=== PATIENT | male | born 1970 | race American Indian/Alaskan Native ===

== ENCOUNTER 2017-03-13 17:19 | Inpatient (IN) | payer MEDICAID, OTHER ==
[2017-03-13] MEDS ORDERED: Iopamidol 755 MG/ML 500 ML Multipack Bottle IVPUSH STA (18:14)
--- NOTE | 2017-03-13 18:24 | EDM.PDOC ---
ED HPI GENERAL MEDICAL PROBLEM - General Chief Complaint: Abdominal Pain Stated Complaint: PT HAS STOMACH PAINS Time Seen by Provider: 03/13/17 18:05 Source of Information: Reports: Patient, Old Records History Limitations: Reports: No Limitations - History of Present Illness INITIAL COMMENTS - FREE TEXT/NARRATIVE: HISTORY AND PHYSICAL: History of present illness: [Pt comes to the ER, referred by Dr. Kimble, his PCP in [place]. Patient developed abdominal pain and bloating last evening which has continued into today. He ate supper at 1900 hours last night but then started with nausea abdominal pain and bloating. He had 5 episodes of vomiting during the night she continued into today. He is vomiting up water. His passing very small amount of gas. He had 1 episode of vomiting prior to arrival in this ER. He's not had any chills but has admitted to episodes of feeling hot with sweating. No blurred vision or double vision. No sore throat chest pain difficulty breathing change in bowel or bladder. No pain to his extremities no weakness in the rashes. He denies any history of abdominal pain or surgeries. Past medical history significant for hypertension and hematuria. No BM or change in his symptoms since evaluation by PCP. ] Review of systems: As per history of present illness and below otherwise all systems reviewed and negative. Past medical history: As per history of present illness and as reviewed below otherwise noncontributory. Surgical history: As per history of present illness and as reviewed below otherwise noncontributory. Social history: No reported history of drug or alcohol abuse. Family history: As per history of present illness and as reviewed below otherwise noncontributory. Physical exam: HEENT: Atraumatic, normocephalic. Oral mucous membranes moist, throat clear, neck supple, nontender. . Lungs: Clear to auscultation, breath sounds equal bilaterally, chest nontender. Heart: S1S2, regular, negative for clicks, rubs, or JVD. Abdomen: Bowel sounds are hypoactive. Abdomen is somewhat firm and distended. No rebound guarding or masses. Pelvis: Stable nontender. Genitourinary: Deferred. Rectal: Deferred. Extremities: No swelling or cyanosis to the lower legs. Neurovascular unremarkable. Neuro: Awake, alert, oriented. Motor and sensory unremarkable throughout. Exam nonfocal. Diagnostics: [CT abdomen and pelvis w/ contrast, CBC, lactic acid, blood cultures x 2] Therapeutics: [none.] Impression: [abdominal pain] Plan: [Dr. Kimble reports that air-fluid levels are appreciated on abdominal x-ray which is performed in clinic morning. CBC shows a white count of 13.7. hemoglobin 15.5. RBCs 5.35 platelets 228.0. Sodium 143. potassium 4.2. liver enzymes are within normal limits. BUN 10. creatinine 1.03. GFR greater than 60. Lactic acid is normal at 1.9. CT shows distention of small bowel in the L mid abdomen w/ mesenteric edema and minimal free fluid. Differential includes enteritis and partial or early small bowel obstruction. Discussed patient's CT findings with Dr. Ryan who agrees to accept patient in patient. This is discussed with patient who is in agreement with inpatient hospitalization. ] Definitive disposition and diagnosis as appropriate pending reevaluation and review of above. Abdominal Pain Score (Numeric/FACES): 5 - Related Data Allergies Allergy/AdvReac Type Severity Reaction Status Date / Time COCA COLA Allergy Hives Uncoded 07/30/15 13:07 Home Meds: Home Meds Lisinopril [Prinivil] 10 mg PO DAILY 07/11/15 [History] Social & Family History - Tobacco Use Smoking Status *Q: Never Smoker Second Hand Smoke Exposure: No - Caffeine Use Caffeine Use: Reports: None - Recreational Drug Use Recreational Drug Use: No ED ROS GENERAL - Review of Systems Review Of Systems: ROS reveals no pertinent complaints other than HPI. ED EXAM, GI/ABD - Physical Exam Exam: See Below Course - Vital Signs Last Recorded V/S: Last Vital Signs Temp 98.1 F 03/13/17 19:21 Pulse 63 03/13/17 19:21 Resp 16 03/13/17 19:21 BP 151/87 H 03/13/17 19:21 Pulse Ox 98 03/13/17 19:21 - Orders/Labs/Meds Orders: Active Orders 24 hr Category Date Time Status Abdomen Pelvis w Cont [CT] Stat Exams 03/13/17 17:39 Taken CULTURE BLOOD [BC] Stat Lab 03/13/17 19:34 Received CULTURE BLOOD [BC] Stat Lab 03/13/17 19:38 Received Blood Culture x2 Reflex Set [OM.PC] Stat Oth 03/13/17 19:24 Ordered Labs: Laboratory Tests 03/13/17 03/13/17 Range/Units 18:20 18:20 WBC 12.66 H (4.0-11.0) K/uL RBC 5.24 (4.50-5.90) M/uL Hgb 16.0 (13.0-17.0) g/dL Hct 45.6 (38.0-50.0) % MCV 87.0 (80.0-98.0) fL MCH 30.5 (27.0-32.0) pg MCHC 35.1 (31.0-37.0) g/dL RDW Std Deviation 42.7 (28.0-62.0) fl RDW Coeff of [place]ine[place] 14 (11.0-15.0) % Plt Count 216 (150-400) K/uL MPV 9.80 (7.40-12.00) fL Neut % (Auto) 72.3 (48.0-80.0) % Lymph % (Auto) 20.2 (16.0-40.0) % [place] % (Auto) 6.3 (0.0-15.0) % Eos % (Auto) 0.6 (0.0-7.0) % Baso % (Auto) 0.6 (0.0-1.5) % Neut # (Auto) 9.1 H (1.4-5.7) K/uL Lymph # (Auto) 2.6 H (0.6-2.4) K/uL [place] # (Auto) 0.8 (0.0-0.8) K/uL Eos # (Auto) 0.1 (0.0-0.7) K/uL Baso # (Auto) 0.1 (0.0-0.1) K/uL Nucleated RBC % 0.0 /100WBC Nucleated RBCs # 0 K/uL Lactate 1.9 (0.20-2.00) mmol/L Meds: Medications Discontinued Medications Generic Name Dose Route Start Last Admin Trade Name Freq PRN Reason Stop Dose Admin Iopamidol 100 ml 03/13/17 18:14 03/13/17 18:32 Isovue Multipack-370 (76%) IVPUSH 03/13/17 18:15 100 ml ONETIME STA Administration Departure - Departure Time of Disposition: 19:55 Disposition: Admitted As Inpatient 64 Condition: good Clinical Impression: Abdominal pain Qualifiers: Abdominal location: generalized Qualified Code(s): R10.84 - Generalized abdominal pain - Discharge Information Forms: ED Department Discharge - My Orders Last 24 Hours: My Active Orders 03/13/17 17:39 Abdomen Pelvis w Cont [CT] Stat 03/13/17 19:24 Blood Culture x2 Reflex Set [OM.PC] Stat 03/13/17 19:34 CULTURE BLOOD [BC] Stat 03/13/17 19:38 CULTURE BLOOD [BC] Stat - Assessment/Plan Last 24 Hours: My Active Orders 03/13/17 17:39 Abdomen Pelvis w Cont [CT] Stat 03/13/17 19:24 Blood Culture x2 Reflex Set [OM.PC] Stat 03/13/17 19:34 CULTURE BLOOD [BC] Stat 03/13/17 19:38 CULTURE BLOOD [BC] Stat
[2017-03-13] MEDS ORDERED: fentaNYL 100 MCG/2 ML SDV IVPUSH PRN (20:46)
--- NOTE | 2017-03-13 20:46 | PCM.HP ---
H&P History of Present Illness - General Date of Service: 03/13/17 Admit Problem/Dx: Admission Diagnosis/Problem Admission Diagnosis/Problem Abdominal pain - History of Present Illness Initial Comments - Free Text/Narative: He was seen in the ED today with complaint of abdominal pain and recurrent vomiting. He states that he does not have so much pain ; it is more a bloated feeling. no fever no diarrhea no dysuria Abdominal Pain Score (Numeric/FACES): 5 - Related Data Allergies/Adverse Reactions: Allergies Allergy/AdvReac Type Severity Reaction Status Date / Time COCA COLA Allergy Hives Uncoded 07/30/15 13:07 Home Medications: Home Meds Lisinopril [Prinivil] 10 mg PO DAILY 07/11/15 [History] Past Medical History Cardiovascular History: Reports: Hypertension. Denies: Afib, CAD, Cardiomyopathy, Heart Failure Respiratory History: Denies: COPD Gastrointestinal History: Denies: Cirrhosis Genitourinary History: Reports: Other (See Below) Other Genitourinary History: hematuria once, none since Musculoskeletal History: Denies: Muscular Dystrophy, RA, SLE Neurological History: Denies: CVA, MS Psychiatric History: Reports: Anxiety Endocrine/Metabolic History: Denies: Diabetes, Type I, Diabetes, Type II Oncologic (Cancer) History: Reports: None - Past Surgical History Head Surgeries/Procedures: Reports: None Male Surgical History: Reports: None Social & Family History - Family History Cardiac: Reports: [place] Respiratory: Reports: None GI: Reports: None Endocrine/Metabolic: Reports: Diabetes, type II Oncologic: Reports: Colon - Tobacco Use Smoking Status *Q: Never Smoker Second Hand Smoke Exposure: No - Caffeine Use Caffeine Use: Reports: Soda, Tea - Alcohol Use Alcohol Use Comment: he states that he does not drink alcohol - Recreational Drug Use Recreational Drug Use: No H&P Review of Systems - Review of Systems: Review Of Systems: See Below General: Denies: Fever HEENT: Denies: Ear Pain, Sore Throat Pulmonary: Denies: Shortness of Breath, Cough, Sputum, Hemoptysis Cardiovascular: Denies: Chest Pain, Palpitations, Edema, Syncope Gastrointestinal: Reports: Abdominal Pain, Distension, Nausea, Vomiting. Denies : Black Stool, Bloody Stool, Hematochezia Genitourinary: Denies: Dysuria, Frequency, Burning, Hematuria Psychiatric: Denies: Confusion, Hallucinations Exam - Exam Exam: See Below - Vital Signs Vital Signs: Last Vital Signs Temp 98.0 F 03/13/17 20:17 Pulse 67 03/13/17 20:17 Resp 18 03/13/17 20:17 BP 169/81 H 03/13/17 20:17 Pulse Ox 96 03/13/17 20:17 Weight: 122.6 kg - Exam General: Alert, Oriented, Cooperative HEENT: EOMI, Mucosa Moist & [place] Neck: Supple, Trachea Midline Lungs: Clear to Auscultation, Normal Respiratory Effort. No: Crackles, Rales, Rhonchi, Rub, Stridor Cardiovascular: Regular Rate, Regular Rhythm Abdomen: Distention, Tenderness (minimal diffuse tenderness), Hypoactive Bowel Sounds. No: Guarding, Rigidity, Rebound, Tympanic Bowel Sounds (Male) Exam: Deferred Extremities: No: Edema Neurological: Cranial Nerves Intact, Normal Speech Neuro Extensive - Mental Status: Normal Mood/Affect Neuro Extensive - Motor, Sensory, Reflexes: No: Facial palsy (L), Facial Palsy ( R), Hemeplagia (R), Hemeplagia (L) Psychiatric: Alert, Normal Affect - Patient Data Result Diagrams: 03/13/17 18:20 *Q Meaningful Use (ADM) - VTE *Q VTE Criteria *Q: - Stroke *Q Stroke Criteria *Q: - AMI *Q AMI Criteria *Q: - Problem List (1) Abdominal pain SNOMED Code(s): 18664896 ICD Code: R10.9 - UNSPECIFIED ABDOMINAL PAIN Status: Acute Current Visit : Yes Qualifiers: Abdominal location: generalized Qualified Code(s): R10.84 - Generalized abdominal pain Problem List Initiated/Reviewed/Updated: Yes Assessment/Plan Comment:: He may have an ileus. will admit and give bowel rest with IVF; may need NG tube will need chemistries, LFT's , abdominal ultrasound, lipase, close monitoring. Joseph Ryan MD
[2017-03-13] MEDS ORDERED: LORazepam 2 MG/ML MDV IVPUSH PRN (20:51)
[2017-03-13 21:06] LABS: CHLORIDE,CL 102 mmol/L (98-110); SODIUM,NA 140 mmol/L (136-146)
[2017-03-13] MEDS: Sodium Chloride 0.9% 1,000 ML IV SCH (21:16)
[2017-03-13] MEDS: Ondansetron 4 MG/2 ML SDV IVPUSH PRN (21:19)
[2017-03-13] MEDS: Enalaprilat 1.25 MG/ML SDV IVPUSH SCH (21:20)
[2017-03-14] MEDS: Ondansetron 4 MG/2 ML SDV IVPUSH PRN (02:18)
[2017-03-14] MEDS: Enalaprilat 1.25 MG/ML SDV IVPUSH SCH ×4 (03:09→20:22)
[2017-03-14] MEDS: Sodium Chloride 0.9% 1,000 ML IV SCH ×4 (03:55→22:00)
[2017-03-14 05:45] LABS: CHLORIDE,CL 104 mmol/L (98-110); SODIUM,NA 141 mmol/L (136-146)
--- NOTE | 2017-03-14 09:39 | PCM.PN ---
- General Info Date of Service: 03/14/17 Admission Dx/Problem (Free Text): Admission Diagnosis/Problem Admission Diagnosis/Problem Abdominal pain Subjective Update: Patient states that abdominal pain has sightly improved but is still present. Currently it is 2/10 and yesterday at admission it was 4-5/10. He just recently had an episode of vomiting. He states this is the first time he has ever had these symptoms and they began abruptly the day the presented. Functional Status: Reports: pain controlled - Review of Systems General: Denies: Fever, Weakness HEENT: Reports: no symptoms Pulmonary: Reports: no symptoms Cardiovascular: Reports: No Symptoms Gastrointestinal: Reports: Abdominal pain, Nausea, Vomiting. Denies: Constipation, Diarrhea Genitourinary: Reports: no symptoms Musculoskeletal: Reports: no symptoms Skin: Reports: no symptoms Neurological: Reports: No Symptoms - Patient Data Vitals - most recent: Last Vital Signs Temp 37.1 C 03/14/17 08:00 Pulse 97 03/14/17 08:00 Resp 20 03/14/17 08:00 BP 149/74 H 03/14/17 08:24 Pulse Ox 91 L 03/14/17 08:00 Weight - most recent: 122.6 kg I&O - last 24 hours: Intake & Output 03/13/17 03/14/17 03/14/17 22:59 06:59 14:59 Intake Total 990 Output Total 450 Balance 540 Lab Results last 24 hrs: Laboratory Results - last 24 hr 03/14/17 03/14/17 03/14/17 Range/Units 02:22 04:50 04:50 WBC 9.95 (4.0-11.0) K/uL RBC 4.96 (4.50-5.90) M/uL Hgb 14.4 (13.0-17.0) g/dL Hct 43.7 (38.0-50.0) % MCV 88.1 (80.0-98.0) fL MCH 29.0 (27.0-32.0) pg MCHC 33.0 (31.0-37.0) g/dL RDW Std Deviation 44.4 (28.0-62.0) fl RDW Coeff of [place] 14 (11.0-15.0) % Plt Count 223 (150-400) K/uL MPV 10.10 (7.40-12.00) fL Neut % (Auto) 71.4 (48.0-80.0) % Lymph % (Auto) 19.2 (16.0-40.0) % [place] % (Auto) 7.9 (0.0-15.0) % Eos % (Auto) 1.0 (0.0-7.0) % Baso % (Auto) 0.5 (0.0-1.5) % Neut # (Auto) 7.1 H (1.4-5.7) K/uL Lymph # (Auto) 1.9 (0.6-2.4) K/uL [place] # (Auto) 0.8 (0.0-0.8) K/uL Eos # (Auto) 0.1 (0.0-0.7) K/uL Baso # (Auto) 0.1 (0.0-0.1) K/uL Nucleated RBC % 0.0 /100WBC Nucleated RBCs # 0 K/uL Sodium 141 (136-146) mmol/L Potassium 4.3 (3.5-5.1) mmol/L Chloride 104 (98-110) mmol/L Carbon Dioxide 26 (21-31) mmol/L BUN 11 (6.0-23.0) mg/dL Creatinine 1.0 (0.6-1.5) mg/dL Est Cr Clr Drug Dosing 102.09 mL/min Estimated GFR (MDRD) > 60.0 ml/min Glucose 124 H (60-110) mg/dL Hemoglobin A1c (0.0-6.0) % Calcium 9.2 (8.8-10.8) mg/dL Magnesium 1.7 (1.5-2.3) mEq/L Total Bilirubin 1.2 (0.1-1.5) mg/dL AST 15 (5-40) IU/L ALT 15 (8-54) IU/L Alkaline Phosphatase 97 (40-150) Total Protein 6.7 (6.0-8.0) g/dL Albumin 4.1 (3.5-5.0) g/dL Globulin 2.6 (2.0-3.5) g/dL Albumin/Globulin Ratio 1.6 (1.3-2.8) Urine Color YELLOW Urine Appearance CLEAR Urine pH 7.0 (5.0-8.0) Ur Specific [place] <= 1.005 (1.001-1.035) Urine Protein NEGATIVE (NEGATIVE) mg/dL Urine Glucose (UA) NEGATIVE (NEGATIVE) mg/dL Urine Ketones NEGATIVE (NEGATIVE) mg/dL Urine Occult Blood MODERATE (NEGATIVE) Urine Nitrite NEGATIVE (NEGATIVE) Urine Bilirubin NEGATIVE (NEGATIVE) Urine Urobilinogen 1.0 (<2.0) EU/dL Ur Leukocyte Esterase NEGATIVE (NEGATIVE) Urine RBC 6-10 (0-2/HPF) Urine WBC 0-1 (0-5/HPF) Ur Epithelial Cells FEW (NONE-FEW) Urine Bacteria RARE (NEGATIVE) Urine Mucus LIGHT (NONE-MOD) 03/14/17 Range/Units 04:50 WBC (4.0-11.0) K/uL RBC (4.50-5.90) M/uL Hgb (13.0-17.0) g/dL Hct (38.0-50.0) % MCV (80.0-98.0) fL MCH (27.0-32.0) pg MCHC (31.0-37.0) g/dL RDW Std Deviation (28.0-62.0) fl RDW Coeff of [place] (11.0-15.0) % Plt Count (150-400) K/uL MPV (7.40-12.00) fL Neut % (Auto) (48.0-80.0) % Lymph % (Auto) (16.0-40.0) % [place] % (Auto) (0.0-15.0) % Eos % (Auto) (0.0-7.0) % Baso % (Auto) (0.0-1.5) % Neut # (Auto) (1.4-5.7) K/uL Lymph # (Auto) (0.6-2.4) K/uL [place] # (Auto) (0.0-0.8) K/uL Eos # (Auto) (0.0-0.7) K/uL Baso # (Auto) (0.0-0.1) K/uL Nucleated RBC % /100WBC Nucleated RBCs # K/uL Sodium (136-146) mmol/L Potassium (3.5-5.1) mmol/L Chloride (98-110) mmol/L Carbon Dioxide (21-31) mmol/L BUN (6.0-23.0) mg/dL Creatinine (0.6-1.5) mg/dL Est Cr Clr Drug Dosing mL/min Estimated GFR (MDRD) ml/min Glucose (60-110) mg/dL Hemoglobin A1c 6.2 H (0.0-6.0) % Calcium (8.8-10.8) mg/dL Magnesium (1.5-2.3) mEq/L Total Bilirubin (0.1-1.5) mg/dL AST (5-40) IU/L ALT (8-54) IU/L Alkaline Phosphatase (40-150) Total Protein (6.0-8.0) g/dL Albumin (3.5-5.0) g/dL Globulin (2.0-3.5) g/dL Albumin/Globulin Ratio (1.3-2.8) Urine Color Urine Appearance Urine pH (5.0-8.0) Ur Specific [place] (1.001-1.035) Urine Protein (NEGATIVE) mg/dL Urine Glucose (UA) (NEGATIVE) mg/dL Urine Ketones (NEGATIVE) mg/dL Urine Occult Blood (NEGATIVE) Urine Nitrite (NEGATIVE) Urine Bilirubin (NEGATIVE) Urine Urobilinogen (<2.0) EU/dL Ur Leukocyte Esterase (NEGATIVE) Urine RBC (0-2/HPF) Urine WBC (0-5/HPF) Ur Epithelial Cells (NONE-FEW) Urine Bacteria (NEGATIVE) Urine Mucus (NONE-MOD) Med Orders - Current: Current Medications Enalaprilat (Vasotec Iv) 1.25 mg IVPUSH Q6H [facility] Last Admin: 03/14/17 08:24 Dose: 1.25 mg Sodium Chloride (Normal Saline) 1,000 mls @ 150 mls/hr IV ASDIRECTED [facility] Last Admin: 03/14/17 03:55 Dose: 150 mls/hr Lorazepam (Ativan) 1 mg IVPUSH Q6H PRN PRN Reason: Anxiety Ondansetron HCl (Zofran) 4 mg IVPUSH Q4H PRN PRN Reason: Nausea Last Admin: 03/14/17 02:18 Dose: 4 mg Discontinued Medications Fentanyl (Sublimaze) 50 mcg IVPUSH Q1H PRN PRN Reason: Pain Stop: 03/13/17 21:47 Iopamidol (Isovue Multipack-370 (76%)) 100 ml IVPUSH ONETIME STA Stop: 03/13/17 18:15 Last Admin: 03/13/17 18:32 Dose: 100 ml - Exam General: alert, oriented, cooperative, no acute distress HEENT: Pupils equal, Pupils reactive Neck: supple Lungs: Clear to auscultation, Normal respiratory effort Cardiovascular: Regular Rate, Regular Rhythm Abdomen: bowel sounds present, tenderness, distension. No: rigidity, rebound, guarding Skin: moist Neurological: no new focal deficit Psy/Mental Status: alert, normal affect, normal mood - Problem List Review Problem List Initiated/Reviewed/Updated: Yes - Plan Plan:: 1. Nausea, Vomiting and Abdominal pain -likely secondary to SBO from Ileus -last BM was 2 days ago -CT shows distended small bowel loops in LLQ -Leukocytosis resolved, wbc count 9.95 -LFT, Amylase, Lipase WNL -continue bowel rest & IVF; may need NG tube -abdominal US today 2. Fatty Liver -seen on CT Abdomen -hepatic panel wnl -denies alcohol use -abdominal US today 3. Pre-Diabetes, HbA1C 6.2% -no previous history of DM -monitor glucose as usual 4. as per orders
--- NOTE | 2017-03-14 10:25 | CT ---
EXAM DATE: 03/13/17 PATIENT'S AGE: 46 Patient: MEDINA REYES Facility: [place], [place] Site . Site : 1970 Study: CT Abdomen/Pelvis [id number] 6:34:19 PM Ordering Physician: Doctor Fair Final Report: INDICATION: Abdominal pain. CT ABDOMEN AND PELVIS WITH CONTRAST TECHNIQUE: Multidetector CT imaging was performed through the abdomen and pelvis following intravenous contrast administration using 100 mL Isovue 370. Coronal and sagittal reconstructions were generated. COMPARISON: None. FINDINGS: Lower chest: Lung bases are clear. Liver: Diffuse fatty infiltration of the liver. Gallbladder and bile ducts: No gallbladder wall thickening or calcified gallstones. No biliary dilation identified. Pancreas: Unremarkable. Spleen: Normal. Adrenals: No nodules or masses. Kidneys, ureters, and urinary bladder: A few very small right renal cortical cysts. No suspicious renal masses or hydronephrosis. Nondistended urinary bladder. No bladder mass or definite wall thickening. Gastrointestinal tract: Moderate abnormal distention of small bowel loops in the left mid abdomen with minimal adjacent mesenteric edema. Discrete caliber transition not clearly visualized. The appendix and colon are normal. Vascular structures: Normal for age. Peritoneum: Small amount of free fluid in the lower pelvis. Lymph nodes: No pathologically enlarged nodes identified. Reproductive organs: No pelvic masses. Bones: Normal for age. IMPRESSION: 1. Moderate abnormal distention of small bowel in the left mid abdomen with minimal adjacent mesenteric edema and minimal free fluid. Differential considerations include enteritis and partial or early small bowel obstruction. 2. Fatty infiltration of liver. LIDA PIERRE MD [employer] Dictated by Uri Pierre MD @ 03/13/2017 7:08:33 PM Dictated by: Uri Pierre MD @ 03/13/2017 19:10:46 (Electronic Signature) Report Signed by Proxy. [facility]PITALJayy
--- NOTE | 2017-03-14 10:37 | US ---
EXAM DATE: 03/13/17 PATIENT'S AGE: 46 Patient: MEDINA REYES Facility: [place], [place] Site . Site : 1970 Study: US Abdomen [id number] 10:27:48 PM Ordering Physician: Connor Ruiz Final Report: INDICATION: pain TECHNIQUE: Ultrasound abdomen limited. Sonographic images of the right upper quadrant were obtained using kelley-scale and color Doppler images. COMPARISON: None FINDINGS: Liver: Normal in size with diffuse increased echotexture. No masses. No intrahepatic biliary dilatation. Gallbladder: No stones or sludge. Normal wall thickness. No pericholecystic fluid. Common bile duct: 3 mm. Pancreas: Obscured. Right kidney: 10.1 cm. Normal echotexture and cortex. No masses, stones, or hydronephrosis. IMPRESSION: 1. No acute abnormality. 2. Diffuse fatty infiltration of the liver. Dictated by Duane Jauregui MD @ 03/13/2017 10:37:01 PM Dictated by: Duane Jauregui MD @ 03/13/2017 22:37:38 (Electronic Signature) Report Signed by Proxy. [facility]ITAL[facility]
[2017-03-14] MEDS: Insulin Aspart 100 Units/ML 3 ML Pen SUBCUT SCH ×2 (11:58→17:29)
[2017-03-14] MEDS: Acetaminophen 325 MG Tab PO PRN (18:49)
[2017-03-15] MEDS: Enalaprilat 1.25 MG/ML SDV IVPUSH SCH ×3 (03:52→15:12)
[2017-03-15] MEDS: Acetaminophen 325 MG Tab PO PRN (03:52)
[2017-03-15] MEDS: Sodium Chloride 0.9% 1,000 ML IV SCH ×2 (04:41→11:30)
[2017-03-15 04:46] LABS: CHLORIDE,CL 106 mmol/L (98-110); SODIUM,NA 140 mmol/L (136-146)
[2017-03-15 15:12] VITALS: BP 126/91
--- NOTE | 2017-03-20 16:56 | PCM.DCSUM1 ---
<Baluch,Oscar - Last Filed: 03/20/17 17:54> Discharge Summary - Hospital Course Free Text/Narrative:: 46 yo male admitted to the hospital on 03/13/17 for small bowel obstruction. He was transferred from from his PCP's clinic due to nausea, vomiting, mild abdominal pain and lack of bm for [address] Abdomen was done in ED which revealed distended small bowel loops. He was put on NPO and given IVF for hydration. Patient was relatively stable and abdominal pain was minimal at most. On second day he reported improved abdominal pain, with some gas passed but no bowel movements. On day 3 his abdominal pain resolved and he had 3 bm's. He was monitored to make sure he was tolerating PO Intake which he did. Patient was discharged home later that day. He will be following up at [facility] with Dr. Barry. It should also be noted that patient was found to have diffuse fatty infiltration of his liver on the CT that was done on day of his admission. Abdominal US RUQ was then done which also showed fatty infiltration. Patient denies alcohol use. His hepatic panel was completely normal. Although this is likely due to obesity patient should have biopsy of liver since there is not enough evidence for us to confirm that his fatty liver is indeed from obesity. Recommended to patient that he bring this up with his pcp and try to schedule Biopsy. I also told the patient that he may see me in clinic and i will arrange for him to have the biopsy done. Discharge Diagnosis: 1. SBO, secondary to ileus, resolved 2. Fatty Liver -seen on CT Abdomen and US abdomen -hepatic panel wnl -denies alcohol use -likely due to obesity but patient should still have Liver Biopsy to rule out other potential serious causes of diffuse fatty infiltration of the liver 3. Pre-Diabetes, HbA1C 6.2% -no previous history of DM - Discharge Data Discharge Date: 03/15/17 Discharge Disposition: Home, Self-Care 01 Condition: Good - Discharge Diagnosis/Problem(s) (1) Abdominal pain SNOMED Code(s): 33090549 ICD Code: R10.9 - UNSPECIFIED ABDOMINAL PAIN Status: Acute Qualifiers: Abdominal location: generalized Qualified Code(s): R10.84 - Generalized abdominal pain - Patient Instructions Diet: Clear Liquid Diet Activity: As Tolerated Notify Provider of: Fever, Increased Pain, Swelling and Redness, Drainage, Nausea and/or Vomiting Other/Special Instructions: -avoid tylenol. -OTC Metamucil 2-3 servings/day. - discuss liver biopsy with PCP - Discharge Plan Home Medications: Home Meds Lisinopril [Prinivil] 10 mg PO DAILY 07/11/15 [History] Patient Handouts: Abdominal Pain, Adult, [id number] Referrals: [facility] [Outside] Deepti Barry MD [Physician] - 03/22/17 11:00 am - Discharge Summary/Plan Comment DC Time >30 min.: No - Patient Data Vitals - Most Recent: Last Vital Signs Temp 36.6 C 03/15/17 15:00 Pulse 78 03/15/17 12:00 Resp 17 03/15/17 15:00 BP 126/91 H 03/15/17 15:12 Pulse Ox 95 03/15/17 15:00 Weight - Most Recent: 122.6 kg Med Orders - Current: Current Medications Discontinued Medications Acetaminophen (Tylenol) 650 mg PO Q4H PRN PRN Reason: Headache Last Admin: 03/15/17 03:52 Dose: 650 mg Enalaprilat (Vasotec Iv) 1.25 mg IVPUSH Q6H ALPA Last Admin: 03/15/17 15:12 Dose: 1.25 mg Fentanyl (Sublimaze) 50 mcg IVPUSH Q1H PRN PRN Reason: Pain Stop: 03/13/17 21:47 Sodium Chloride (Normal Saline) 1,000 mls @ 150 mls/hr IV ASDIRECTED [facility] Last Admin: 03/15/17 11:30 Dose: 150 mls/hr Insulin Aspart (Novolog) 0 unit SUBCUT Q6H ALPA PRN Reason: Protocol Last Admin: 03/14/17 17:29 Dose: Not Given Iopamidol (Isovue Multipack-370 (76%)) 100 ml IVPUSH ONETIME STA Stop: 03/13/17 18:15 Last Admin: 03/13/17 18:32 Dose: 100 ml Lorazepam (Ativan) 1 mg IVPUSH Q6H PRN PRN Reason: Anxiety Ondansetron HCl (Zofran) 4 mg IVPUSH Q4H PRN PRN Reason: Nausea Last Admin: 03/14/17 02:18 Dose: 4 mg *Q Meaningful Use (DIS) - VTE *Q VTE Criteria *Q: - Stroke *Q Stroke Criteria *Q: - AMI *Q AMI Criteria *Q: <Nuno Otoole - Last Filed: 03/21/17 11:30> - Patient Data Vitals - Most Recent: Last Vital Signs Temp 36.6 C 03/15/17 15:00 Pulse 78 03/15/17 12:00 Resp 17 03/15/17 15:00 BP 126/91 H 03/15/17 15:12 Pulse Ox 95 03/15/17 15:00 Med Orders - Current: Current Medications Discontinued Medications Acetaminophen (Tylenol) 650 mg PO Q4H PRN PRN Reason: Headache Last Admin: 03/15/17 03:52 Dose: 650 mg Enalaprilat (Vasotec Iv) 1.25 mg IVPUSH Q6H [facility] Last Admin: 03/15/17 15:12 Dose: 1.25 mg Fentanyl (Sublimaze) 50 mcg IVPUSH Q1H PRN PRN Reason: Pain Stop: 03/13/17 21:47 Sodium Chloride (Normal Saline) 1,000 mls @ 150 mls/hr IV ASDIRECTED ALPA Last Admin: 03/15/17 11:30 Dose: 150 mls/hr Insulin Aspart (Novolog) 0 unit SUBCUT Q6H ALPA PRN Reason: Protocol Last Admin: 03/14/17 17:29 Dose: Not Given Iopamidol (Isovue Multipack-370 (76%)) 100 ml IVPUSH ONETIME STA Stop: 03/13/17 18:15 Last Admin: 03/13/17 18:32 Dose: 100 ml Lorazepam (Ativan) 1 mg IVPUSH Q6H PRN PRN Reason: Anxiety Ondansetron HCl (Zofran) 4 mg IVPUSH Q4H PRN PRN Reason: Nausea Last Admin: 03/14/17 02:18 Dose: 4 mg *Q Meaningful Use (DIS) - VTE *Q VTE Criteria *Q: - Stroke *Q Stroke Criteria *Q: - AMI *Q AMI Criteria *Q: - Free Text/Narrative Note: I have examined patient. I have discussed findings with resident. I agree with the assessment and plan outlined in the following resident's note.
== END 2017-03-15 17:10 | disposition home or self-care (01) | DRG 392 ==
LOC: MW.ED 17:19 → MW.MS 19:54
PROVIDERS: ADMIT Family Medicine; ATTEND Family Medicine
DX: R10.84 Generalized abdominal pain (principal); R11.2 Nausea with vomiting, unspecified; I10 Essential (primary) hypertension; K76.0 Fatty (change of) liver, not elsewhere classified; R73.03 Prediabetes; Z79.899 Other long term (current) drug therapy; Z91.09 Other allergy status, other than to drugs and biological substances
CPT/HCPCS: 36415; 74177; 74177-26; 76705; 76705-26; 80053; 81001; 82150; 82962; 83036; 83605; 83690; 83735; 85025; 87040; 99285; 99285-25; A9270-GY; J2405; J7040; Q9967

== ENCOUNTER 2017-06-02 09:29 | Emergency (ER) | payer OTHER, MEDICAID ==
[2017-06-02] MEDS ORDERED: Ketorolac 60 MG/2 ML SDV IM ONE (09:56)
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
--- NOTE | 2017-06-02 10:44 | CR ---
EXAMINATION: PA chest radiograph and left ribs HISTORY: Pain. FINDINGS: The trachea is midline. The cardiomediastinal silhouette is within normal limits. No pulmonary infil trates, effusions or pneumothorax. Osseous structures appear unremarkable. No displaced rib fracture identified. IMPRESSION: No acute cardiopulmonary process.
[2017-06-02 11:08] VITALS: BP 131/88
== END 2017-06-02 10:58 | disposition home or self-care (01) ==
LOC: MW.ED 09:29
DX: S20.212A Contusion of left front wall of thorax, initial encounter (principal); I10 Essential (primary) hypertension; F41.9 Anxiety disorder, unspecified; V86.59XA Driver of other special all-terrain or other off-road motor vehicle injured in nontraffic accident, initial encounter
CPT/HCPCS: 71101; 96372; 99283; J1885

== ENCOUNTER 2017-06-04 22:28 | Emergency (ER) | payer MEDICAID, OTHER ==
[2017-06-04] MEDS ORDERED: Sodium Chloride 0.9% 10 ML Syringe FLUSH PRN (22:45)
[2017-06-04] MEDS ORDERED: Sodium Chloride 0.9% 2.5 ML Syringe FLUSH PRN (22:45)
[2017-06-04] MEDS ORDERED: HYDROmorphone 1 MG/ML Syringe IM ONE (22:47)
[2017-06-04] MEDS ORDERED: Ketorolac 30 MG/ML SDV IVPUSH ONE (22:47)
[2017-06-04] MEDS ORDERED: Iopamidol 755 MG/ML 500 ML Multipack Bottle IVPUSH STA (22:55)
[2017-06-04] MEDS ORDERED: Sodium Chloride 0.9% 1,000 ML IV ONE (22:58)
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
[2017-06-04 23:27] LABS: CHLORIDE,CL 104 mmol/L (98-110); SODIUM,NA 140 mmol/L (136-146)
[2017-06-05 04:41] VITALS: BP 170/79
--- NOTE | 2017-06-05 15:11 | CT ---
EXAM DATE: 06/04/17 PATIENT'S AGE: 46 Patient: MEDINA REYES Facility: [place], [place] Site . Site : [id number] Study: CT Abdomen/Pelvis [id number]/7/2017 12:24:51 AM Ordering Physician: Rojelio Escalante Final Report: : INDICATION: INJURY TO LUQ [address] ABDOMEN AND PELVIS WITH CONTRAST TECHNIQUE: Multidetector CT imaging was performed through the abdomen and pelvis following intravenous contrast administration using 100 mL of Isovue 370. Coronal and sagittal reconstructions were generated. COMPARISON: 03/13/2017 CT abdomen and pelvis. FINDINGS: Lower chest: Mild bibasilar lung stranding consistent with atelectasis. Liver: Fatty infiltration of the liver. Gallbladder and bile ducts: No gallbladder wall thickening or calcified gallstones. No biliary dilation identified. Pancreas: Unremarkable. Spleen: Normal. Adrenals: No nodules or masses. Kidneys, ureters, and urinary bladder: Tiny right renal cortical cysts. No renal masses or hydronephrosis. No bladder mass or definite wall thickening. Gastrointestinal tract: Normal caliber bowel without wall thickening. The appendix is normal. Vascular structures: Normal for age. Peritoneum: No free air, abscess, or significant free fluid. Lymph nodes: No pathologically enlarged nodes identified. Reproductive organs: No pelvic masses. Bones: No acute fracture identified. Incidental Schmorl`s node in the superior endplate of T11, as before. IMPRESSION: 1. No acute abnormality identified. No fractures are seen. 2. Fatty infiltration of liver. LIDA PIERRE MD [employer] Dictated by Uri Pierre MD @ 06/05/2017 12:50:31 AM Dictated by: Uri Pierre MD @ 06/05/2017 00:50:49 (Electronic Signature) Report Signed by Proxy. [facility]
--- NOTE | 2017-06-05 15:12 | CR ---
EXAM DATE: 06/04/17 PATIENT'S AGE: 46 Patient: MEDINA REYES Facility: [place], [place] Site . Site : 1970 Study: XRay Chest [id number]/7/2017 1:43:48 AM Ordering Physician: Rojelio Escalante Final Report: INDICATION: LUQ INJURY 3 DAYS CHEST, ONE VIEW An AP radiograph of the chest was performed. Comparison: 06/02/2017. The lungs appear clear and no pleural effusions are identified. The cardiomediastinal silhouette and pulmonary vasculature appear normal, as do the visualized bones. IMPRESSION: No acute intrathoracic abnormality identified. LIDA PIERRE MD [employer] Dictated by: Uri Pierre MD @ 06/05/2017 01:47:10 (Electronic Signature) Report Signed by Proxy. [facility]
--- NOTE | 2017-06-06 09:02 | CR ---
EXAM DATE: 06/04/17 PATIENT'S AGE: 46 Patient: MEDINA REYES Facility: [place], [place] Site Site : 1970 Study: XRay Chest Left Ribs [id number]/6/2017 4:09:44 PM Ordering Physician: TERELL MUÑOZ Final Report: INDICATION: PAIN FINDINGS: Three views of the right ribs show no evidence of a rib fracture. No other bony or soft tissue abnormalities identified. Dictated by Yonatan Bolaños MD @ 06/05/2017 4:22:07 PM Dictated by: Yonatan Bolaños MD @ 06/05/2017 16:22:13 (Electronic Signature) [facility]
== END 2017-06-05 02:24 | disposition home or self-care (01) ==
LOC: MW.ED 22:28
DX: S30.1XXA Contusion of abdominal wall, initial encounter (principal); S29.9XXA Unspecified injury of thorax, initial encounter; I10 Essential (primary) hypertension; V84.5XXA Driver of special agricultural vehicle injured in nontraffic accident, initial encounter
CPT/HCPCS: 71010; 71100; 74177; 80053; 81001; 83690; 85025; 96361; 96374; 96375; 99284; J1170; J1885; J7040; Q9967; 99283

== ENCOUNTER 2017-10-21 05:05 | Emergency (ER) | payer MEDICAID, OTHER ==
[2017-10-21] MEDS ORDERED: Sodium Chloride 0.9% 1,000 ML IV ONE (05:09)
[2017-10-21] MEDS ORDERED: Nitroglycerin 0.4 MG Tab.SL SL PRN (05:09)
[2017-10-21] MEDS ORDERED: Aspirin 81 MG Tab.Chew PO ONE (05:09)
--- NOTE | 2017-10-21 05:11 | EDM.PDOC ---
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 No association with shortness of breath or diaphoresis patient does feel under the weather however generally weak with a wobbly gait. Some mild nausea no vomiting no fever chills sweats no headache dizziness or palpitation no bowel or urine symptoms Denies cardiac history Denies smoking or alcohol use He does take lisinopril for hypertension ] Review of systems: As per history of present illness and below otherwise all systems reviewed and negative. Past medical history: As per history of present illness and as reviewed below otherwise noncontributory. Surgical history: As per history of present illness and as reviewed below otherwise noncontributory. Social history: No reported history of drug or alcohol abuse. Family history: As per history of present illness and as reviewed below otherwise noncontributory. Physical exam: HEENT: Atraumatic, normocephalic, pupils reactive, negative for conjunctival pallor or scleral icterus, mucous membranes moist, throat clear, neck supple, nontender, trachea midline. Lungs: Clear to auscultation, breath sounds equal bilaterally, chest nontender. Heart: S1S2, regular, negative for clicks, rubs, or JVD. Abdomen: Soft, nondistended, nontender. Negative for masses or hepatosplenomegaly. Negative for costovertebral tenderness. Pelvis: Stable nontender. Genitourinary: Deferred. Rectal: Deferred. Extremities: Atraumatic, negative for cords or calf pain. Neurovascular unremarkable. Neuro: Awake, alert, oriented. Cranial nerves II through XII unremarkable. Cerebellum unremarkable. Motor and sensory unremarkable throughout. Exam nonfocal. Diagnostics: [CBC CMP UA troponin EKG Chest 1 view ] Therapeutics: [Liter normal saline bolus Aspirin 324 mg chewable Nitroglycerin 0.4 mg sublingual--not provided ] Due to wobbly gait I did offer the patient admission for observation he refused stating he would rather go home and return as needed Impression: Muscle spasm left shoulder girdle Definitive disposition and diagnosis as appropriate pending reevaluation and review of above. left shoulder/chest Pain Score (Numeric/FACES): 8 - Related Data Allergies Allergy/AdvReac Type Severity Reaction Status Date / Time COCA COLA Allergy Hives Uncoded 10/21/17 05:10 Home Meds: Home Meds Lisinopril [Prinivil] 10 mg PO DAILY 07/11/15 [History] Ibuprofen [Ibuprofen] 1 tab PO ASDIRECTED PRN 10/21/17 [History] Past Medical History HEENT History: Reports: None Cardiovascular History: Reports: Hypertension Gastrointestinal History: Reports: Bowel Obstruction Genitourinary History: Reports: Other (See Below) Other Genitourinary History: hematuria once, none since Musculoskeletal History: Reports: None Neurological History: Reports: None Psychiatric History: Reports: Anxiety Endocrine/Metabolic History: Reports: None Hematologic History: Reports: None Immunologic History: Reports: None Oncologic (Cancer) History: Reports: None Dermatologic History: Reports: None - Infectious Disease History Infectious Disease History: Reports: None - Past Surgical History Head Surgeries/Procedures: Reports: None Male Surgical History: Reports: None Social & Family History - Family History Family Medical History: Noncontributory Cardiac: Reports: [place] Respiratory: Reports: None GI: Reports: None Endocrine/Metabolic: Reports: Diabetes, type II Oncologic: Reports: Colon - Tobacco Use Smoking Status *Q: Never Smoker Second Hand Smoke Exposure: No - Caffeine Use Caffeine Use: Reports: Coffee, Soda - Recreational Drug Use Recreational Drug Use: No ED ROS GENERAL - Review of Systems Review Of Systems: ROS reveals no pertinent complaints other than HPI. ED EXAM, GENERAL - Physical Exam Exam: See Below Course - Vital Signs Last Recorded V/S: Last Vital Signs Temp 97.6 F 10/21/17 05:11 Pulse 65 10/21/17 05:11 Resp 18 10/21/17 05:11 BP 122/76 10/21/17 05:11 Pulse Ox 97 10/21/17 05:11 - Orders/Labs/Meds Orders: Active Orders 24 hr Category Date Time Status EKG Documentation Completion [RC] AM Care 10/21/17 05:09 Active Chest 1V Frontal [CR] Stat Exams 10/21/17 05:09 Taken Nitroglycerin [Nitrostat] Med 10/21/17 05:09 Active 0.4 mg SL Q5M PRN Medication Orders Nitroglycerin (Nitrostat) 0.4 mg SL Q5M PRN PRN Reason: Chest Pain Labs: Laboratory Tests 10/21/17 10/21/17 10/21/17 Range/Units 05:13 05:13 05:25 WBC 7.76 (4.0-11.0) K/uL RBC 4.84 (4.50-5.90) M/uL Hgb 14.3 (13.0-17.0) g/dL Hct 42.9 (38.0-50.0) % MCV 88.6 (80.0-98.0) fL MCH 29.5 (27.0-32.0) pg MCHC 33.3 (31.0-37.0) g/dL RDW Std Deviation 45.8 (28.0-62.0) fl RDW Coeff of Destiney 14 (11.0-15.0) % Plt Count 206 (150-400) K/uL MPV 9.90 (7.40-12.00) fL Neut % (Auto) 59.6 (48.0-80.0) % Lymph % (Auto) 28.4 (16.0-40.0) % Hayes % (Auto) 9.4 (0.0-15.0) % Eos % (Auto) 2.1 (0.0-7.0) % Baso % (Auto) 0.5 (0.0-1.5) % Neut # (Auto) 4.6 (1.4-5.7) K/uL Lymph # (Auto) 2.2 (0.6-2.4) K/uL Hayes # (Auto) 0.7 (0.0-0.8) K/uL Eos # (Auto) 0.2 (0.0-0.7) K/uL Baso # (Auto) 0.0 (0.0-0.1) K/uL Nucleated RBC % 0.0 /100WBC Nucleated RBCs # 0 K/uL Sodium 139 (136-146) mmol/L Potassium 3.6 (3.5-5.1) mmol/L Chloride 105 (98-110) mmol/L Carbon Dioxide 25 (21-31) mmol/L BUN 16 (6.0-23.0) mg/dL Creatinine 0.8 (0.6-1.5) mg/dL Est Cr Clr Drug Dosing 126.23 mL/min Estimated GFR (MDRD) > 60.0 ml/min Glucose 123 H (60-110) mg/dL Calcium 9.0 (8.8-10.8) mg/dL Total Bilirubin 0.9 (0.1-1.5) mg/dL AST 15 (5-40) IU/L ALT 14 (8-54) IU/L Alkaline Phosphatase 102 (40-150) Troponin I < 0.10 (0.0-0.29) NG/ML Total Protein 7.0 (6.0-8.0) g/dL Albumin 4.1 (3.5-5.0) g/dL Globulin 2.9 (2.0-3.5) g/dL Albumin/Globulin Ratio 1.4 (1.3-2.8) Amylase 19 (10-90) U/L Lipase 23 (7-80) U/L Urine Color YELLOW Urine Appearance CLEAR Urine pH 6.0 (5.0-8.0) Ur Specific [place] 1.025 (1.001-1.035) Urine Protein NEGATIVE (NEGATIVE) mg/dL Urine Glucose (UA) NEGATIVE (NEGATIVE) mg/dL Urine Ketones NEGATIVE (NEGATIVE) mg/dL Urine Occult Blood MODERATE (NEGATIVE) Urine Nitrite NEGATIVE (NEGATIVE) Urine Bilirubin NEGATIVE (NEGATIVE) Urine Urobilinogen 4.0 H (<2.0) EU/dL Ur Leukocyte Esterase NEGATIVE (NEGATIVE) Urine RBC 2-5 (0-2/HPF) Urine WBC 1-2 (0-5/HPF) Ur Epithelial Cells FEW (NONE-FEW) Urine Bacteria FEW (NEGATIVE) Urine Mucus FEW (NONE-MOD) Ethyl Alcohol mg/dL 10/21/17 Range/Units 05:31 WBC (4.0-11.0) K/uL RBC (4.50-5.90) M/uL Hgb (13.0-17.0) g/dL Hct (38.0-50.0) % MCV (80.0-98.0) fL MCH (27.0-32.0) pg MCHC (31.0-37.0) g/dL RDW Std Deviation (28.0-62.0) fl RDW Coeff of Destiney (11.0-15.0) % Plt Count (150-400) K/uL MPV (7.40-12.00) fL Neut % (Auto) (48.0-80.0) % Lymph % (Auto) (16.0-40.0) % Hayes % (Auto) (0.0-15.0) % Eos % (Auto) (0.0-7.0) % Baso % (Auto) (0.0-1.5) % Neut # (Auto) (1.4-5.7) K/uL Lymph # (Auto) (0.6-2.4) K/uL Hayes # (Auto) (0.0-0.8) K/uL Eos # (Auto) (0.0-0.7) K/uL Baso # (Auto) (0.0-0.1) K/uL Nucleated RBC % /100WBC Nucleated RBCs # K/uL Sodium (136-146) mmol/L Potassium (3.5-5.1) mmol/L Chloride (98-110) mmol/L Carbon Dioxide (21-31) mmol/L BUN (6.0-23.0) mg/dL Creatinine (0.6-1.5) mg/dL Est Cr Clr Drug Dosing mL/min Estimated GFR (MDRD) ml/min Glucose (60-110) mg/dL Calcium (8.8-10.8) mg/dL Total Bilirubin (0.1-1.5) mg/dL AST (5-40) IU/L ALT (8-54) IU/L Alkaline Phosphatase (40-150) Troponin I (0.0-0.29) NG/ML Total Protein (6.0-8.0) g/dL Albumin (3.5-5.0) g/dL Globulin (2.0-3.5) g/dL Albumin/Globulin Ratio (1.3-2.8) Amylase (10-90) U/L Lipase (7-80) U/L Urine Color Urine Appearance Urine pH (5.0-8.0) Ur Specific [place] (1.001-1.035) Urine Protein (NEGATIVE) mg/dL Urine Glucose (UA) (NEGATIVE) mg/dL Urine Ketones (NEGATIVE) mg/dL Urine Occult Blood (NEGATIVE) Urine Nitrite (NEGATIVE) Urine Bilirubin (NEGATIVE) Urine Urobilinogen (<2.0) EU/dL Ur Leukocyte Esterase (NEGATIVE) Urine RBC (0-2/HPF) Urine WBC (0-5/HPF) Ur Epithelial Cells (NONE-FEW) Urine Bacteria (NEGATIVE) Urine Mucus (NONE-MOD) Ethyl Alcohol < 10.0 mg/dL Meds: Medications Generic Name Dose Route Start Last Admin Trade Name Freq PRN Reason Stop Dose Admin Nitroglycerin 0.4 mg 10/21/17 05:09 Nitrostat SL Q5M PRN Chest Pain Discontinued Medications Generic Name Dose Route Start Last Admin Trade Name Freq PRN Reason Stop Dose Admin Aspirin 324 mg 10/21/17 05:09 10/21/17 05:17 Aspirin PO 10/21/17 05:10 324 mg ONETIME ONE Administration Sodium Chloride 1,000 mls @ 999 mls/hr 10/21/17 05:09 10/21/17 05:17 Normal Saline IV 10/21/17 06:09 999 mls/hr STAT ONE Administration Departure - Departure Time of Disposition: 06:36 Disposition: Home, Self-Care 01 Condition: Good Clinical Impression: Muscle spasm - Discharge Information Additional Instructions: Return if symptoms persist or worsen or new concerning symptoms develop Follow-up with primary care in 2 weeks sooner as needed The following information is given to patients seen in the emergency department who are being discharged to home. This information is to outline your options for follow-up care. We provide all patients seen in our emergency department with a follow-up referral. The need for follow-up, as well as the timing and circumstances, are variable depending upon the specifics of your emergency department visit. If you don't have a primary care physician on staff, we will provide you with a referral. We always advise you to contact your personal physician following an emergency department visit to inform them of the circumstance of the visit and for follow-up with them and/or the need for any referrals to a consulting specialist. The emergency department will also refer you to a specialist when appropriate. This referral assures that you have the opportunity for follow-up care with a specialist. All of these measure are taken in an effort to provide you with optimal care, which includes your follow-up. Under all circumstances we always encourage you to contact your private physician who remains a resource for coordinating your care. When calling for follow-up care, please make the office aware that this follow-up is from your recent emergency room visit. If for any reason you are refused follow-up, please contact the [facility] emergency department at and asked to speak to the emergency department charge nurse. - My Orders Last 24 Hours: My Active Orders 10/21/17 05:09 EKG Documentation Completion [RC] AM Chest 1V Frontal [CR] Stat Nitroglycerin [Nitrostat] 0.4 mg SL Q5M PRN - Assessment/Plan Last 24 Hours: My Active Orders 10/21/17 05:09 EKG Documentation Completion [RC] AM Chest 1V Frontal [CR] Stat Nitroglycerin [Nitrostat] 0.4 mg SL Q5M PRN
[2017-10-21 05:41] LABS: CHLORIDE,CL 105 mmol/L (98-110); SODIUM,NA 139 mmol/L (136-146)
[2017-10-21 06:49] VITALS: BP 142/79
--- NOTE | 2017-10-24 13:31 | CR ---
EXAM DATE: 10/21/17 PATIENT'S AGE: 47 Patient: MEDINA REYES Facility: [place], [place] Site . Site : 1970 Study: XRay Chest [id number]/23/2017 5:25:55 AM Ordering Physician: Doctor Fair Final Report: INDICATION: Pain TECHNIQUE: Chest 1 views COMPARISON: June 05, 2017 FINDINGS: Cardiovascular and mediastinum: Heart size and vasculature are normal in caliber and appearance. Lungs and pleural spaces: Lungs are clear. No sign of infiltrate or mass. No sign of pleural effusion. No pneumothorax. Bones and soft tissues: No significant findings. IMPRESSION: No acute findings and no significant changes from the prior exam. Dictated by Lester White MD @ 10/21/2017 5:34:57 AM Dictated by: Lester White MD @ 10/21/2017 05:35:03 (Electronic Signature) Report Signed by Proxy. [facility]
== END 2017-10-21 06:46 | disposition home or self-care (01) ==
LOC: MW.ED 05:05
DX: M62.838 Other muscle spasm (principal); I10 Essential (primary) hypertension; Z79.899 Other long term (current) drug therapy
CPT/HCPCS: 71010; 80053; 81001; 82150; 83690; 84484; 85025; 96360; 99285; A9270; G0480; J7040; 99283

== ENCOUNTER 2022-06-22 22:09 | Emergency (ER) | payer SELFPAY ==
[2022-06-23] MEDS ORDERED: Morphine 4 MG/ML VIAL IM ONE (01:43)
[2022-06-23] MEDS ORDERED: Sodium Chloride 0.9% 1,000 ML IV ONE (01:43)
[2022-06-23 02:29] LABS: CARBON DIOXIDE,CO2 26.9 mmol/L (21.0-32.0); POTASSIUM,K 3.7 mmol/L (3.5-5.1)
[2022-06-23] MEDS ORDERED: Iopamidol 755 MG/ML 500 ML Multipack Bottle IVPUSH STA (02:51)
[2022-06-23] MEDS ORDERED: Magnesium Citrate Solution 296 ML Bottle PO ONE ×2 (04:22→04:24)
[2022-06-23] MEDS ORDERED: Polyethylene Glycol 3350 Powder 17 GM Packet ONE (04:51)
[2022-06-23] MEDS ORDERED: Polyethylene Glycol 3350 Powder 17 GM Packet PO ONE (04:57)
[2022-06-23 05:46] VITALS: BP 131/95; PULSE 87
== END 2022-06-23 05:46 | disposition home or self-care (01) ==
LOC: MW.ED 22:09
DX: K59.00 Constipation, unspecified (principal); I10 Essential (primary) hypertension; Z79.899 Other long term (current) drug therapy; Z91.048 Other nonmedicinal substance allergy status; Z20.822 Contact with and (suspected) exposure to COVID-19
CPT/HCPCS: 36415; 74177; 80053; 81001; 85025; 87635; 96361; 96374; 99284; A9270; J2270; J7030; Q9967; U0002

== ENCOUNTER 2022-07-29 15:11 | Emergency (ER) | payer SELFPAY ==
[2022-07-29 18:37] VITALS: BP 140/83; PULSE 60
== END 2022-07-29 18:17 | disposition home or self-care (01) ==
LOC: MW.ED 15:11
DX: J01.00 Acute maxillary sinusitis, unspecified (principal); I10 Essential (primary) hypertension; Z91.018 Allergy to other foods; Z79.899 Other long term (current) drug therapy
CPT/HCPCS: 71045; 71045-26; 99283

== ENCOUNTER 2022-09-05 14:57 | Emergency (ER) | payer OTHER ==
[2022-09-05] MEDS ORDERED: Meclizine 25 MG Tab PO ONE (16:21)
[2022-09-05] MEDS ORDERED: Acetaminophen/Butalbital/Caffeine 325-50-40 MG Tab PO ONE (16:21)
[2022-09-05] MEDS ORDERED: Ibuprofen 600 MG Tab PO ONE (16:22)
[2022-09-05 17:04] VITALS: BP 145/96; PULSE 68
== END 2022-09-05 17:03 | disposition home or self-care (01) ==
LOC: MW.ED 14:57
DX: S09.90XA Unspecified injury of head, initial encounter (principal); I10 Essential (primary) hypertension; Z91.018 Allergy to other foods; Z79.899 Other long term (current) drug therapy; W22.8XXA Striking against or struck by other objects, initial encounter; Y92.69 Other specified industrial and construction area as the place of occurrence of the external cause
CPT/HCPCS: 99283; A9270

== ENCOUNTER 2023-05-25 17:39 | Emergency (ER) | payer OTHER ==
[2023-05-25] MEDS ORDERED: Ibuprofen 600 MG Tab PO ONE (18:18)
[2023-05-25 20:22] VITALS: BP 158/86; PULSE 55
== END 2023-05-25 19:55 | disposition home or self-care (01) ==
LOC: MW.ED 17:39
DX: S60.042A Contusion of left ring finger without damage to nail, initial encounter (principal); S60.052A Contusion of left little finger without damage to nail, initial encounter; I10 Essential (primary) hypertension; Z91.018 Allergy to other foods; Z79.899 Other long term (current) drug therapy; W19.XXXA Unspecified fall, initial encounter; Y92.410 Unspecified street and highway as the place of occurrence of the external cause; Y99.0 Civilian activity done for income or pay
CPT/HCPCS: 73130; 99283; A9270

== ENCOUNTER 2024-05-31 17:27 | Emergency (ER) | payer OTHER ==
[2024-05-31] MEDS: Cetirizine 10 MG Tab PO ONE (19:39)
[2024-05-31 19:43] VITALS: BP 147/87; PULSE 87
== END 2024-05-31 19:43 | disposition home or self-care (01) ==
LOC: MW.ED 17:27
DX: T63.461A Toxic effect of venom of wasps, accidental (unintentional), initial encounter (principal); I10 Essential (primary) hypertension; Z91.018 Allergy to other foods; Z75.8 Other problems related to medical facilities and other health care
CPT/HCPCS: 99282; A9270; 99283

== ENCOUNTER 2024-08-13 22:18 | Emergency (ER) | payer OTHER ==
[2024-08-13] MEDS ORDERED: Sodium Chloride 0.9% 2.5 ML Syringe FLUSH PRN (22:34)
[2024-08-13] MEDS ORDERED: Sodium Chloride 0.9% 10 ML Syringe FLUSH PRN (22:34)
[2024-08-13 22:47] LABS: BASOPHILS ABSOLUTE AUTO 0.08 K/uL (0.00-0.20); BASOPHILS PERCENT AUTO 0.9 % (0.0-1.0); EOSINOPHILS PERCENT AUTO 1.1 % (0.0-6.0); HEMATOCRIT 42.1 % (42.0-52.0); HEMOGLOBIN 14.6 g/dL (14.0-18.0); IMMATURE GRAN ABSOLUTE AUTO 0.04 K/uL (0.00-0.05); IMMATURE GRAN PERCENT AUTO 0.4 % (0.0-0.4); LYMPHOCYTES ABSOLUTE AUTO 1.94 K/uL (1.00-4.80); LYMPHOCYTES PERCENT AUTO 20.8 % (24.0-44.0); MEAN CORPUSCULAR HEMOGLOBIN 29.9 pg (28.0-32.0); MEAN CORPUSCULAR HGB CONC 34.7 g/dL (32.0-36.0); MEAN CORPUSCULAR VOLUME 86.1 fL (83.0-99.0); MEAN PLATELET VOLUME 9.3 fL (9.4-12.4); MONOCYTES ABSOLUTE AUTO 0.61 K/uL (0.00-0.80); MONOCYTES PERCENT AUTO 6.5 % (0.0-8.0); NEUTROPHILS ABSOLUTE AUTO 6.57 K/uL (1.80-7.70); NEUTROPHILS PERCENT AUTO 70.3 % (41.0-71.0); PLATELET COUNT,PLT 212 K/uL (150-400); RED BLOOD CELL COUNT 4.89 M/uL (4.52-5.90); WHITE BLOOD CELL COUNT,WBC 9.34 K/uL (3.9-11.3)
[2024-08-13] MEDS: Ondansetron 4 MG/2 ML SDV IVPUSH ONE (22:52)
[2024-08-13] MEDS: Famotidine 20 MG/2 ML SDV IVPUSH ONE (22:52)
[2024-08-13] MEDS: Sodium Chloride 0.9% 1,000 ML IV ONE (22:52)
[2024-08-13 23:01] LABS: APPEARANCE,URINE CLEAR; BILIRUBIN,URINE NEGATIVE (NEGATIVE); COLOR,URINE YELLOW; GLUCOSE,URINE NEGATIVE (NEGATIVE); KETONES,URINE NEGATIVE (NEGATIVE); LEUKOCYTE ESTERASE,URINE NEGATIVE (NEGATIVE); NITRITE,URINE NEGATIVE (NEGATIVE); OCCULT BLOOD,URINE SMALL (NEGATIVE); PROTEIN,URINE NEGATIVE (NEGATIVE); UROBILINOGEN,URINE 0.2 EU/dL (<2.0)
[2024-08-13 23:11] LABS: BACTERIA,URINE RARE (NEGATIVE); EPITHELIAL CELLS,URINE RARE (NONE-FEW); WBC,URINE 0-1 (0-5/HPF)
[2024-08-13 23:13] LABS: A/G RATIO 0.9 (0.9-1.6); ALBUMIN 3.5 g/dL (3.4-5.0); BILIRUBIN TOTAL 0.7 mg/dL (0.2-1.0); CALCIUM 8.9 mg/dL (8.5-10.1); CARBON DIOXIDE,CO2 30.7 mmol/L (21.0-32.0); CREATININE 1.3 mg/dL (0.8-1.3); EST CRCL DRUG DOSING (CG) 72.56 mL/min; POTASSIUM,K 3.5 mmol/L (3.5-5.1); PROTEIN TOTAL,TP 7.2 g/dL (6.4-8.2)
[2024-08-13] MEDS ORDERED: Iopamidol 755 MG/ML 500 ML Multipack Bottle IVPUSH ONE (23:18)
[2024-08-13] MEDS: Iopamidol 755 Mg/ML 100 ML Bottle IVPUSH ONE (23:52)
[2024-08-14 00:35] VITALS: BP 152/84; PULSE 51
== END 2024-08-14 00:36 | disposition home or self-care (01) ==
LOC: MW.ED 22:18
DX: R10.84 Generalized abdominal pain (principal); I10 Essential (primary) hypertension; Z79.899 Other long term (current) drug therapy; Z75.8 Other problems related to medical facilities and other health care; Z91.048 Other nonmedicinal substance allergy status
CPT/HCPCS: 36415; 74177; 80053; 81001; 83690; 85025; 96361; 96374; 96375; 99284; J2405; J3490; J7030; Q9967

== ENCOUNTER 2025-09-29 10:57 | Emergency (ER) | payer OTHER ==
[2025-09-29 13:09] VITALS: BP 140/76; PULSE 77
== END 2025-09-29 13:09 | disposition home or self-care (01) ==
LOC: MW.ED 10:57
DX: M25.561 Pain in right knee (principal); I10 Essential (primary) hypertension; Z91.018 Allergy to other foods; Z79.899 Other long term (current) drug therapy; Z75.3 Unavailability and inaccessibility of health-care facilities
CPT/HCPCS: 73562; 99283; A9270